=== PATIENT | male | born 1970 | race Two or more races ===

== ENCOUNTER 2018-11-09 15:00 | Outpatient (CLI) | payer MEDICARE, OTHER | END 2018-11-09 23:59 | disposition home or self-care (01) | LOC: MSC 15:00 | PROVIDERS: ATTEND Anesthesiology | DX: G89.4 Chronic pain syndrome (principal); M96.1 Postlaminectomy syndrome, not elsewhere classified; M54.6 Pain in thoracic spine; G35 Multiple sclerosis; F11.20 Opioid dependence, uncomplicated; M54.5 Low back pain ==

== ENCOUNTER → 2018-12-14 | Outpatient (CLI) | payer MEDICARE, OTHER | END | disposition home or self-care (01) | LOC: MSC 15:30 | PROVIDERS: ATTEND Anesthesiology | DX: G89.4 Chronic pain syndrome (principal); M54.5 Low back pain; M96.1 Postlaminectomy syndrome, not elsewhere classified; G35 Multiple sclerosis; F11.20 Opioid dependence, uncomplicated; Z79.899 Other long term (current) drug therapy ==